=== PATIENT | female | born 1980 | race Caucasian/White ===

== ENCOUNTER 2017-01-06 15:57 | Inpatient (IN) | payer OTHER ==
[~2017-01-06] VITALS: Ht 165.1 cm; Wt 79.4 kg
[~2017-01-06 15:57] MED LIST: MOTRIN 800MG T800 MG PO; PRENATAL VITAMI1 TA4 PO
[2017-01-06 17:26] LABS: ABSOLUTE BASOPHIL COUNT 0 /CUMM (0.0-0.2); ABSOLUTE EOSINOPHIL COUNT 0.1 /CUMM (0.0-0.7); ABSOLUTE GRANULOCYTE CT 9.6 /CUMM (1.4-6.5); ABSOLUTE LYMPH COUNT 1.3 /CUMM (1.2-3.4); ABSOLUTE MONOCYTE COUNT 0.9 /CUMM (0.10-0.60); BASOPHIL % 0.2 % (0.0-2.0); EOSINOPHIL % 0.5 % (0-5); GRANULOCYTE % 80.9 % (42.2-75.2); MEAN CORPUSCULAR HGB 32.3 PG (27.0-31.0); MEAN CORPUSCULAR HGB CONC 33.9 G/DL (33.0-37.0); MEAN CORPUSCULAR VOLUME 95.2 FL (81.0-99.0); PLATELET COUNT 260 /CUMM (130-400); RBC DISTRIBUTION WIDTH 12.9 % (11.5-14.5); RED BLOOD CELL CT 3.78 /CUMM (4.20-5.40); WHITE BLOOD CELL COUNT 11.9 /CUMM (4.8-10.8)
[2017-01-06] MEDS ORDERED: PRENATAL TABLE1 EAC2 PO (19:37)
--- NOTE | 2017-01-06 20:28 | History & Physical ---
General Information and HPI MD Statement: I have seen and personally examined MYRNA VEGA and documented this H&P. The patient is a 36 year old female at [38] weeks and [2/7] days gestation who presented with a chief complaint of srom-likely leaking x 4 days. Source of Information: patient, old records Exam Limitations: no limitations History of Present Illness: 36 yo, LMP 04/13/2016 AND CORDELL 01/18/2017 @ 38 2/7 wks was admitted after + Amnisure - clear fluid. Pt states leaking x 4 days (did not call the office/ service until today) <ild contractions Issues for this 1.) AMA - 1st Trim Screen WNL- Mat T 21 WNL (male) declined CVS/ Amnio. Weekly BPP 35 wks on wnl 2.) h/o LEEP in the past - serial cx length were WNL 3.) Elevated 1 hr GTT 146 (NL GTT- (F.) 66, (1) 106, (2) 109, (3) 101 Allergies/Medications Allergies: Coded Allergies: MDX - No Known Allergies - Nka (NO KNOWN ALLERGIES - NKA) (03/29/15) Home Med list Vit No.130/Iron/FA ( Tablet) 27 MG IRON-800 MCG TABLET 1 TAB PO DAILY vitamin support (Reported) Compliance With Home Meds: GOOD Past History global analytics head History : 3 Para: 1 (1011) Last Menstrual Period: unk Estimated Delivery Date: 04/20/2015 Past global analytics head History: none Past Pregnancies Past Pregnancies: Date of Delivery: 04/20/2015 Gestational Age: 36 6/7 Length of Labor: 12 Weight: 6#12 Type of Delivery: vaginal Anesthesia: epidural Place of Delivery: [facility] Complications: none Medical History Blood Transfusion Hx: No Neurological: NONE EENT: NONE Cardiovascular: NONE Respiratory: NONE Gastrointestinal: NONE Hepatic: NONE Renal: NONE Musculoskeletal: NONE Psychiatric: NONE Endocrine: NONE Blood Disorders: NONE Cancer(s): NONE 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 Home Who Do You Live With? spouse, child, self Primary Language: Setswana Smoking Status: Never Smoked ETOH Use: denies use Illicit Drug Use: denies illicit drug use Review of Systems Review of Systems: NEG FOR CARDIAC, PULMONARY, GI COMPLAINTS Exam & Diagnostic Data Last 24 Hrs of Vital Signs/I&O 98.7 BP 128/72 R 17 PO2 99% Obstetric Exam Wgt Gained During : 54 Pelvimetry: PROVEN 6#12oz Dilation (cm): 6 Effacement (%): 80 Station: -1 Membranes: SROM Fluid: clear Fundal Height (cm): 38 Multiple Gestation? No Contractions: Q 3 TO 6 MIN Infant #1 - FHR Baseline: 140 Category: 1 Estimated Weight: 7#4oz Presentation: VTX Patient for Induction? No Physical Exam General Appearance Alert, Oriented X3, Cooperative, Mild Distress Skin No Significant Lesion Cardiovascular Regular Rate Lungs Normal Air Movement Abdomen Normal Bowel Sounds, Soft, No Tenderness, No Hepatospenomegaly, GRAVID UTERUS NONTENDER CONTRACTION Q 3 TO 6 MIN FHR 140'S Neurological Normal Gait, Normal Speech Extremities No Tenderness/Swelling Reproductive (FEMALE) Normal female genitalia Labs Blood Type & Rh: O+ Antibody Screen: N Hct/Hgb & Platelets #1: 13.8/42.9 288,000 Hct/Hgb & Platelets #2: 12.6/39.5 217,000 Rubella: IMM VDRL #1: N VDRL #2: N HbsAg: N HIV #1: N HIV #2 N 1 Hr P 3 Hr PG: NL 3 HR GTT 66/106/109/101 Group B Strep: N Initial Ultrasound: 06/13/2016 8 5/7 S=D=U/S Anatomy Ultrasound: 09/15/2016 NL ANATOMY MALE S=D=U/S Ultrasound for EFW: 01/01/2017 37 4/7 WKS 33% 6#8oz VTX BPP 8/8 Genetic Testin07/07/2016 S=D=U/S NL NT NL MAT T21 (MALE) Last 24 Hrs of Labs/Manish: Laboratory Tests 01/06/17 1800: Urine Color YEL, Urine Clarity HAZY H, Urine pH 6.5, Ur Specific [place] 1.015, Urine Protein NEG, Urine Ketones NEG, Urine Nitrite NEG, Urine Bilirubin NEG, Urine Urobilinogen 0.2, Ur Leukocyte Esterase NEG, Ur Microscopic SEDIMENT EXAMINED, Urine RBC 1-3, Ur Epithelial Cells FEW, Urine Bacteria FEW H, Urine Hemoglobin SMALL H, Urine Glucose NEG 01/06/17 1710: CBC w Diff NO MAN DIFF REQ, RBC 3.78 L, MCV 95.2, MCH 32.3 H, RDW 12.9, MPV 10.0, Gran % 80.9 H, Lymphocytes % 10.6 L, Monocytes % 7.8, Eosinophils % 0.5, Basophils % 0.2, Absolute Granulocytes 9.6 H, Absolute Lymphocytes 1.3, Absolute Monocytes 0.9 H, Absolute Eosinophils 0.1, Absolute Basophils 0, PUBS MCHC 33.9 01/06/17 1620: Membrane Rupture POSITIVE Assessment/Plan Assessment/Plan: IUP @ 38 2/7 WKS W/ LIKELY SROM X 4 DAYS WITH A LARGE GUSH OF FLUID TODAY, ONSET OF CONTRACTIONS TODAY. GR B STR NEGATIVE. AFEBRILE. FHR REASSURING PLAN ADMIT IVF / EPIDURAL PITOCIN AUGMENTATION NEEDED IF CONTRACTIONS SPACE OUT W/ EPIDURAL As Ranked By This Provider Problem List: 1. 2. Delayed delivery after SROM (spontaneous rupture of membranes)antepart Core Measures/Miscellaneous Venous Thromboembolism VTE Risk Factors: Obesity, / VTE Contraindications: Active Bleeding (FALL RISK) VTE Diagnosis: No Beta Jessica Is Beta Jessica a Home Med? No If No, Why Not? N/A Antibiotics Is Patient on Antibiotics? No Attending MD Review Statement Attending Statement Attending MD Statement: examined this patient, discussed with family, reviewed EMR data (avail), discussed w/nursing Attending Assessment/Plan: Joanne RODRIGUEZ MD
--- NOTE | 2017-01-06 22:38 | Labor & Delivery Summary ---
Delivery Summary Vaginal Delivery: Vaginal: SPONTANEOUS VAGINAL DELIVERY Episiotomy/Lacerations: Episiotomy/Lacerations: SMALLM 1ST DEGREE LACERATION - NO BLEEDING - NO SUTURE NEEDED Type: SMALL 1ST DEGREE- NO BLEEDING NO SUTURE NEEDED Repair: NONE NEEDED Anesthesia: EPIDURAL IN LABOR Placenta: Placenta: spontanteous, normal, 3 vessel Anesthesia: EPIDURAL Cord PH Value: N/A Baby's Weight: MALE 6#14oz 3115 Grams Apgars - 1 Min: 9 Apgars - 5 Min: 9 Additional Comments: LEAKING FLUID X 4 DAYS (NOT CALL MD OFFICE/SERVICE) GUSH OF FLUID TODAY, THEN ONSET OF LABOR. NO FEVER/ CHILLS. + GFM, NO BLEEDING. PROGRESSED IN LABOR TO 5 CM, RECEIVED EPIDURAL. CONTRACTIONS SPACED OUT. LOW DOSE PITOCIN AUGMENTATION. PT PROGRESSED TO FULLY @ 21:24. BEGAN PUSHING @ 21: 50. LV MALE OVER SMALL 1ST DEGREE PERINEAL LACERATION WT 6#14oz 3115gms APGARS 9/9/9 NO CERVICAL OR VAGINAL LACERATIONS. SMALL 1ST DEGREE PERINEAL LACERATION- NO BLEEDING- NO SUTURE NEEDED. PT REMAINED AFEBRILE IN LABOR MIRIAM HUNTER RH+ IMMUNE K MICHAEL WHYTE
[2017-01-07 09:57] LABS: ABSOLUTE BASOPHIL COUNT 0 /CUMM (0.0-0.2); ABSOLUTE EOSINOPHIL COUNT 0 /CUMM (0.0-0.7); ABSOLUTE GRANULOCYTE CT 12.6 /CUMM (1.4-6.5); ABSOLUTE LYMPH COUNT 1.7 /CUMM (1.2-3.4); BASOPHIL % 0.3 % (0.0-2.0); EOSINOPHIL % 0.3 % (0-5); GRANULOCYTE % 81.8 % (42.2-75.2); HEMATOCRIT 40.2 % (37-47); MEAN CORPUSCULAR HGB 32.5 PG (27.0-31.0); MEAN CORPUSCULAR HGB CONC 33.8 G/DL (33.0-37.0); MEAN CORPUSCULAR VOLUME 96.2 FL (81.0-99.0); MEAN PLATELET VOLUME 10.8 FL (7.4-10.4); PLATELET COUNT 277 /CUMM (130-400); RBC DISTRIBUTION WIDTH 12.9 % (11.5-14.5); RED BLOOD CELL CT 4.18 /CUMM (4.20-5.40); WHITE BLOOD CELL COUNT 15.4 /CUMM (4.8-10.8)
--- NOTE | 2017-01-07 14:28 | PN- Post Delivery/GYN ---
Subjective Subjective: DOING WELL - HAPPY WITH HER DELIVERY. WANTS A CIRC FOR HER SON Review of Systems: NEG FOR CARDIAC, PULMONARY GI COMPLAINTS Objective Last 24 Hrs of Vital Signs/I&O AFEBRILE VSS Intake & Output 01/07 1600 01/07 0800 01/07 0000 Intake Total Output Total Balance Patient 175 lb Weight Physical Exam General Appearance Alert, Oriented X3, Cooperative, Mild Distress Cardiovascular Regular Rate Lungs Normal Air Movement Abdomen Normal Bowel Sounds, Soft, No Tenderness, No Hepatospenomegaly, UTERUS FIRM NONTENDER 2 FB BELOW UMBILICUS Neurological Normal Gait, Normal Speech Extremities No Tenderness/Swelling Reproductive (FEMALE) Normal female genitalia, AVGE LOCHIA Current Medications: Current Medications Sig/Caprice Start time Last Medication Dose Route Stop Time Status Admin Acetaminophen 650 MG Q4P PRN 01/06 2230 AC PO Bupivacaine HCl 10 ML .STK-MED ONE 01/07 1928 DC EPID 01/06 1929 Docusate Sodium 100 MG BID PRN 01/06 2230 AC PO Ephedrine 25 MG .STK-MED ONE 01/06 193 DC IV 01/06 193 Hydroxyzine HCl 100 MG AT BEDTIME NEED.. 01/06 223 AC PO Ibuprofen 800 MG Q6P PRN 01/06 223 AC 01/07 PO 1245 Ketorolac 30 MG ONCE ONE 01/06 2230 DC Tromethamine IV 01/06 223 Lactated Ringer's 1,000 ML Q8H 01/06 1700 DC 01/06 IV 1843 Magnesium Hydroxide 30 ML DAILY PRN 01/06 223 AC PO Methylergonovine 200 MCG Q4P PRN 01/06 223 AC Maleate PO Methylergonovine 0.2 MG STAT STA 01/06 221 DC Maleate IM 01/06 221 Oxycodone/ 1 TAB Q3P PRN 01/06 223 AC Acetaminophen PO Oxytocin 20 UNITS Q5H 01/06 223 DC Lactated Ringer's 1,000 ML IV 01/07 0329 Oxytocin 30 UNITS PER PROTOCL 01/06 2015 DC Lactated Ringer's 500 ML IV 01/07 0434 Last 24 Hrs of Labs/Manish: Laboratory Tests 01/07/17 0755: CBC w Diff NO MAN DIFF REQ, RBC 4.18 L, MCV 96.2, MCH 32.5 H, RDW 12.9, MPV 10.8 H, Gran % 81.8 H, Lymphocytes % 11.2 L, Monocytes % 6.4, Eosinophils % 0.3, Basophils % 0.3, Absolute Granulocytes 12.6 H, Absolute Lymphocytes 1.7, Absolute Monocytes 1.0 H, Absolute Eosinophils 0, Absolute Basophils 0, PUBS MCHC 33.8 01/06/17 1800: Urine Color YEL, Urine Clarity HAZY H, Urine pH 6.5, Ur Specific [place] 1.015, Urine Protein NEG, Urine Ketones NEG, Urine Nitrite NEG, Urine Bilirubin NEG, Urine Urobilinogen 0.2, Ur Leukocyte Esterase NEG, Ur Microscopic SEDIMENT EXAMINED, Urine RBC 1-3, Ur Epithelial Cells FEW, Urine Bacteria FEW H, Urine Hemoglobin SMALL H, Urine Glucose NEG 01/06/17 1710: CBC w Diff NO MAN DIFF REQ, RBC 3.78 L, MCV 95.2, MCH 32.3 H, RDW 12.9, MPV 10.0, Gran % 80.9 H, Lymphocytes % 10.6 L, Monocytes % 7.8, Eosinophils % 0.5, Basophils % 0.2, Absolute Granulocytes 9.6 H, Absolute Lymphocytes 1.3, Absolute Monocytes 0.9 H, Absolute Eosinophils 0.1, Absolute Basophils 0, PUBS MCHC 33.9 01/06/17 1620: Membrane Rupture POSITIVE Assessment/Plan Assessment/Plan STABLE PPD #1 ROUTINE PP CARE REG DIET- MOTRIN NEEDED CONSENT FOR CIRC SIGNED Problem List: 1. Term of male 2. Attending MD Review Statement Attending Statement Attending MD Statement: examined this patient, discussed with family, reviewed EMR data (avail), discussed with nursing Attending Assessment/Plan: Joanne RODRIGUEZ MD
[2017-01-07] MEDS ORDERED: IBUPROFEN800 M1 PO (22:42)
[2017-01-07] MEDS ORDERED: PERCOCET 5-3251 EACH PO (22:42)
--- NOTE | 2017-01-08 08:00 | PN- OBGYN ---
Surgical Brief Attending Note Brief Attending Note: DOING WELL. NO COMPLAINTS. READY FOR DISCHARGE. +AMBULATING VOIDING , TOLERATING PAIN AND PO. SMALL LOCHIA. +NURSING. VSSAF FF@U-1 EXT NO CALF TENDERNESS, TRACE B/L PEDAL EDEMA Laboratory Tests 01/07/17 0755: CBC w Diff NO MAN DIFF REQ, RBC 4.18 L, MCV 96.2, MCH 32.5 H, RDW 12.9, MPV 10.8 H, Gran % 81.8 H, Lymphocytes % 11.2 L, Monocytes % 6.4, Eosinophils % 0.3, Basophils % 0.3, Absolute Granulocytes 12.6 H, Absolute Lymphocytes 1.7, Absolute Monocytes 1.0 H, Absolute Eosinophils 0, Absolute Basophils 0, PUBS MCHC 33.8 01/06/17 1800: Urine Color YEL, Urine Clarity HAZY H, Urine pH 6.5, Ur Specific [place] 1.015, Urine Protein NEG, Urine Ketones NEG, Urine Nitrite NEG, Urine Bilirubin NEG, Urine Urobilinogen 0.2, Ur Leukocyte Esterase NEG, Ur Microscopic SEDIMENT EXAMINED, Urine RBC 1-3, Ur Epithelial Cells FEW, Urine Bacteria FEW H, Urine Hemoglobin SMALL H, Urine Glucose NEG 01/06/17 1710: CBC w Diff NO MAN DIFF REQ, RBC 3.78 L, MCV 95.2, MCH 32.3 H, RDW 12.9, MPV 10.0, Gran % 80.9 H, Lymphocytes % 10.6 L, Monocytes % 7.8, Eosinophils % 0.5, Basophils % 0.2, Absolute Granulocytes 9.6 H, Absolute Lymphocytes 1.3, Absolute Monocytes 0.9 H, Absolute Eosinophils 0.1, Absolute Basophils 0, PUBS MCHC 33.9 01/06/17 1620: Membrane Rupture POSITIVE S/P PPD2. DOING WELL.D/C TO HOME. PRECAUTIONS ADVISED. SEND HOME ON MOTRIN ONLY PRN. ERROR MADE IN D/C MEDS. DOES NOT NEED PERCOCET.
== END 2017-01-08 11:17 | DRG 775 ==
LOC: CBCO 15:57 → GNO 16:51
PROVIDERS: ADMIT Obstetrics & Gynecology
PROC: 10E0XZZ Delivery of Products of Conception, External Approach (ICD-10-PCS; principal; 2017-01-06)
DX: O42.12 Full-term premature rupture of membranes, onset of labor more than 24 hours following rupture (principal); O70.0 First degree perineal laceration during delivery; Z3A.38 38 weeks gestation of pregnancy; Z37.0 Single live birth
CPT/HCPCS: GNOS; 36415; 81001; 84112; G0463; J1885; J7120

== ENCOUNTER 2017-11-04 17:26 | Emergency (ER) | payer OTHER ==
[~2017-11-04] VITALS: Ht 165.1 cm; Wt 61.2 kg
[~2017-11-04 17:26] MED LIST changes: +IBUPROFEN800 M1 PO; +PERCOCET 5-3251 EACH PO; +PRENATAL TABLE1 EAC2 PO
--- NOTE | 2017-11-04 18:12 | ED MVC/FALL/TRAUMA COMPLAINT ---
History of Present Illness General Chief Complaint: Fall Stated Complaint: S/P FALL THIS PM. +HEADSTRIKE +NAUSEA -LOC Source: patient Exam Limitations: no limitations Vital Signs & Intake/Output Vital Signs & Intake/Output Vital Signs Date Time Temp Pulse Resp B/P B/P Pulse O2 O2 Flow FiO2 Mean Ox Delivery Rate 11/040 98.2 72 18 124/76 99 Room Air 11/04 1807 Room Air 11/04 1738 97.0 74 18 127/80 99 Room Air Allergies Coded Allergies: MDX - No Known Allergies - Nka (NO KNOWN ALLERGIES - NKA) (03/29/15) Reconcile Medications Ibuprofen 800 MG TABLET 800 MG PO Q6P PRN UTERINE CRAMPING Oxycodone HCl/Acetaminophen (Percocet 5-325 MG Tablet) 5 MG-325 MG TABLET 1 TAB PO Q3P PRN PAIN SCALE 5-10 Vit No.130/Iron/FA ( Tablet) 27 MG IRON-800 MCG TABLET 1 TAB PO DAILY vitamin support (Reported) Triage Note: 36F STATES HER ANKLE ROLLED GOING DOWN HER STEPS AND SHE WENT DOWN 3 STEPS AND UNSURE IF SHE HIT HER HEAD ON THE CEMENT STATING "IT'S ALL FUZZY." +SORENESS TO LEFT SIDE OF HEAD AND HAS SLIGHT NAUSEA, NO VOMITING. PERRLA AND EOM INTACT. SPEECH CLEAR. +SORENESS TO LEFT TRAP AND ABRASIONS TO LEFT KNEE AND LOWER LEG. 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 5/5 STRENGTH, ABLE TO AMBULATE INDEPENDENTLY WITHOUT ISSUE. MEDICATED WITH TYLENOL PER eMAR Triage Nurses Notes Reviewed? yes Onset: Just prior to arrival Duration: minute(s): Timing: no prior history Severity: moderate Severity Numbers: 5 Injuries/Fall Location: head, lower extremity Method of Injury: fall Loss of Consciousness: unsure Modifying Factors: Worsens With: movement, palpation. : No Patient currently breastfeeds: Yes HPI: Patient is a 36-year-old female presenting to the emergency department with chief complaint of right ankle pain, left-sided head pain and nausea after falling down 3 steps prior to arrival. She reports that she was holding her 10- month-old child in her right hand, rolled her right ankle and fell down the steps. She skinned her left matias on the stone.. She is unsure if she hit her head or loss consciousness but has left-sided head pain and nausea since the fall. Denies visual changes. No vomiting. Denies chest pain or palpitations. Denies taking anything prior to arrival help with symptoms. She reports that the ankle pain has improved with time. She has been able to ambulate without pain or difficulty. Headache is currently mild to moderate. Patient also reporting left-sided neck pain. (Jessica Rahman) Past History Travel History Traveled to [place] past 21 day No Medical History Any Pertinent Medical History? 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 No (Jessica Rahman) Review of Systems Review of Systems Constitutional: Reports: no symptoms. Comments Review of systems: See HPI, All other systems negative. Constitutional, no chills fever or weight loss HEENT: No visual changes no sore throat no congestion Cardiovascular: No chest pain ,palpitation , orthopnea or ankle swelling Skin, no jaundice no rashes Respiratory: No dyspnea cough sputum or hemoptysis GI: No nausea no vomiting : No dysuria No hematuria Muscle skeletal: no back pain Neurologic: No numbness no confusion Psych: No stress anxiety or depression,. Heme/endocrine: No bruising no bleeding no polyuria or polydipsia Immunology: No splenectomy or history of AIDS (Jessica Rahman) Physical Exam Physical Exam General Appearance: well developed/nourished, no apparent distress, alert, awake , comfortable Comments: Well-developed well-nourished person in no acute distress HEENT: No hemotympanum noted bilaterally. No step-off deformities or bogginess noted to palpation of entire scalp. Extraocular motion intact, no nystagmus. Pupils equally round and reactive to light and accommodation. Nose is atraumatic. External auditory canal and Tympanic membranes clear. Pharynx normal. No swelling or edema. Neck: normal range of motion without pain or tenderness, no C-spine tenderness. Mild tenderness to palpation over the left cervical paraspinal muscles. Back: Nontender Respiratory: No respiratory distress. Extremity: No edema, no calf tenderness to palpation, normal and equal pulses. Nontender to palpation over the right ankle, full range of motion. Superficial abrasion noted over the distal aspect of the left matias, full range of motion of upper and lower extremities without difficulty or pain. Muscular strength is 5 out of 5 in upper and lower extremities. It Support Manager strength is equal and symmetric bilaterally. Neuro: Alert oriented x3, motor sensory normal, cranial nerves II through XII grossly intact. Cerebellar testing is unremarkable. Gait is steady. Skin: See extremity exam, otherwise No appreciable rash on exposed skin, skin is warm and dry. Psych: Mood and affect is normal, memory and judgment is normal. Core Measures ACS in differential dx? No CVA/TIA Diagnosis No Sepsis Present: No Sepsis Focused Exam Completed? No (Amanda BARDEN,Jessica) Progress Differential Diagnosis: ANKLE SPRAIN, CONTUSION, MINOR HEAD INJURY, ICH, CONCUSSION, POST-CONCUSSIVE SYDOME, ABRASION. Plan of Care: Orders Procedure Date/time Status URINE 11/04 1740 Complete Laboratory Tests 11/04/17 180: Urine Test NEGATIVE Diagnostic Imaging: Viewed by Me: CT Scan. Discussed w/RAD: CT Scan. Radiology Impression: PATIENT: MYRNA VEGA PRESENT AGE: 36 PATIENT ACCOUNT NO: [id number] : 81 LOCATION: [facility] [place] ORDERING PHYSICIAN: Jessica BRADEN SERVICE DATE: 11/04/17 EXAM TYPE: CAT - CT HEAD WO IV CONTRAST EXAMINATION: CT HEAD WITHOUT CONTRAST CLINICAL INFORMATION: Fall question loss of consciousness, headache COMPARISON: None TECHNIQUE: Contiguous axial imaging was performed from the skull base to vertex without intravenous administration of contrast. DLP: 617 mGy-cm FINDINGS: There is no evidence of acute intracranial hemorrhage or territorial infarction. No abnormal mass effect or midline shift is seen. Marcos to white matter differentiation is well preserved. No extra-axial fluid collections are identified. The ventricles are normal in size. There is no abnormal attenuation within the brain parenchyma. The osseous structures and soft tissues are normal. The mastoid air cells and visualized portions of the paranasal sinuses are well aerated. IMPRESSION: No acute intracranial pathology. DICTATED BY: Aiyana Nixon MD DATE/TIME DICTATED:11/04/171925 TONG SETTER:JORDYN DATE/TIME TRANSCRIBED:11/04/171925 CONFIDENTIAL, DO NOT COPY WITHOUT APPROPRIATE AUTHORIZATION. <Electronically signed in Other Vendor System> SIGNED BY: Aiyana Nixon MD 11/04/171933 Comments: 11/04/2017 6:19:59 PM patient is neurologically intact, no focal deficits. Unsure if there is any LOC and patient complaining of a posterior headache and nausea. No signs of skull fracture. Likely minor head injury the patient and patient's family would feel more comfortable getting imaging of the head. Patient will go for CT scan once urine is back. 11/04/2017 7:42:42 PM patient informed of imaging results. Likely minor head injury. Educated on signs and symptoms return. Patient nontoxic. (Jessica Rahman) Departure Departure Time of Disposition: 1941 Disposition: HOME OR SELF CARE Condition: Stable Clinical Impression Primary Impression: Minor head injury Qualifiers: Encounter type: initial encounter Qualified Code: S09.90XA - Unspecified injury of head, initial encounter Referrals: Yenny WHYTE,Emeterio Carlos (PCP/Family) Additional Instructions: Follow-up with your primary care physician in the next 5-7 days. Return for worsening symptoms or concerns. Take [id number] Motrin or Tylenol as directed to help with aches or pains. Apply ice affected areas. Avoid bright lights ,excessive sounds are stimulators ischemic symptoms worse. Departure Forms: Customer Survey General Discharge Information (Jessica Rahman) PA/LAWN SERVICE WORKER Co-Sign Statement Statement: ED Attending supervision documentation- [] I saw and evaluated the patient. I have also reviewed all the pertinent lab results and diagnostic results. I agree with the findings and the plan of care as documented in the PA's/LAWN SERVICE WORKER's documentation. [x] I have reviewed the ED Record and agree with the PA's/LAWN SERVICE WORKER's documentation. [] Additions or exceptions (if any) to the PAs/LAWN SERVICE WORKER's note and plan are summarized below: [] (Allen WHYTE,Earle Armas)
--- NOTE | 2017-11-04 19:34 | CT SCAN REPORT ---
EXAMINATION: CT HEAD WITHOUT CONTRAST CLINICAL INFORMATION: Fall question loss of consciousness, headache COMPARISON: None TECHNIQUE: Contiguous axial imaging was performed from the skull base to vertex without intravenous administration of contrast. DLP: 617 mGy-cm FINDINGS: There is no evidence of acute intracranial hemorrhage or territorial infarction. No abnormal mass effect or midline shift is seen. Marcos to white matter differentiation is well preserved. No extra-axial fluid collections are identified. The ventricles are normal in size. There is no abnormal attenuation within the brain parenchyma. The osseous structures and soft tissues are normal. The mastoid air cells and visualized portions of the paranasal sinuses are well aerated. IMPRESSION: No acute intracranial pathology.
[2017-11-04 19:40] VITALS: BP 124/76
== END 2017-11-04 19:52 ==
LOC: ERH 17:26
DX: S09.90XA Unspecified injury of head, initial encounter (principal); W10.9XXA Fall (on) (from) unspecified stairs and steps, initial encounter; Y92.9 Unspecified place or not applicable; Y93.9 Activity, unspecified
CPT/HCPCS: 81025